=== PATIENT | female | born 1990 | race Hispanic/Latino ===

== ENCOUNTER 2020-01-29 07:51 | Emergency (ER) | payer OTHER ==
[2020-01-29 08:08] VITALS: BP 137/73
[2020-01-29] MEDS ORDERED: KETOROLAC 60 MG/2 ML INJ IM ONE (10:20)
[2020-01-29] MEDS ORDERED: dexAMETHasone 4 MG/ML VIAL IM ONE (10:20)
[2020-01-29] MEDS ORDERED: traMADol 50 MG TAB PO ONE (10:20)
--- NOTE | 2020-01-29 10:53 | Emergency Department Report ---
ED Back Pain/Injury HPI - General Chief Complaint: Back Pain/Injury Stated Complaint: BACK PAIN RADIATING TO LEGS Time Seen by Provider: 01/29/20 10:12 Source: patient Limitations: No Limitations - History of Present Illness Initial Comments: Patient is a 29-year-old female presents emergency room with complaints of left lower back pain that radiates down her left leg that exacerbated yesterday. Patient states that she has had this back pain for approximately 2 months after she was breaking up her dogs from fighting. she denies any new fall or injury. She states that she has been seeing her primary care doctor for this. She states that she has an MRI scheduled for today at 6:30 PM. She states that she has been taking ibuprofen 800 mg and tizanidine. She states that beginning yesterday the pain increased and she had discomfort with movement, standing, sitting. She states that she has tingling down the left leg which she has been experiencing over the last 3 weeks. She denies any weakness, bowel or bladder incontinence, urinary symptoms, vomiting, diarrhea, fever. She has not yet seen an orthopedic doctor. She states that she did have an x-ray performed by her primary care physician which she states she was told had "narrowing but she denies any fracture or dislocation." She denies any allergies to medications. - Related Data Previous Rx's Medication Instructions Recorded Last Taken Type Naproxen [Naprosyn] 500 mg PO BID PRN #30 tablet 04/08/13 Unknown Rx Menthol/Camphor [Freeborn Hulbert 1 applicatio TP BID #18 oint...g. 01/29/20 Unknown Rx Ointment] traMADoL [Ultram 50 MG tab] 50 mg PO Q6HR PRN #10 tablet 01/29/20 Unknown Rx Allergies Allergy/AdvReac Type Severity Reaction Status Date / Time No Known Allergies Allergy Unverified 04/08/13 02:39 ED Review of Systems ROS: Stated complaint: BACK PAIN RADIATING TO LEGS Other details as noted in HPI Comment: All other systems reviewed and negative ED Past Medical Hx - Past Medical History Previous Medical History?: No - Surgical History Past Surgical History?: No - Social History Smoking Status: Never Smoker Substance Use Type: Alcohol - Medications Home Medications: Home Medications Medication Instructions Recorded Confirmed Last Taken Type Naproxen [Naprosyn] 500 mg PO BID PRN #30 tablet 04/08/13 Unknown Rx Menthol/Camphor [Freeborn Hulbert 1 applicatio TP BID #18 oint...g. 01/29/20 Unknown Rx Ointment] traMADoL [Ultram 50 MG tab] 50 mg PO Q6HR PRN #10 tablet 01/29/20 Unknown Rx ED Physical Exam - General Limitations: No Limitations General appearance: alert, in no apparent distress - Head Head exam: Present: atraumatic, normocephalic - Eye Eye exam: Present: normal appearance - ENT ENT exam: Present: mucous membranes moist - Neck Neck exam: Present: normal inspection, full ROM. Absent: tenderness - Respiratory Respiratory exam: Present: normal lung sounds bilaterally. Absent: respiratory distress, wheezes, rales, rhonchi, stridor, chest wall tenderness, accessory muscle use, decreased breath sounds, prolonged expiratory - Cardiovascular Cardiovascular Exam: Present: regular rate, normal rhythm, normal heart sounds. Absent: systolic murmur, diastolic murmur, rubs, gallop - Back Exam Back exam: Present: normal inspection, full ROM, paraspinal tenderness (left lower lumbar paraspinal muscular ttp, no midline C-spine, T-spine or L-spine ttp, no step offs, no deformities). Absent: vertebral tenderness - Neurological Exam Neurological exam: Present: alert, oriented X3, CN II-XII intact, normal gait. Absent: motor sensory deficit - Psychiatric Psychiatric exam: Present: normal affect, normal mood - Skin Skin exam: Present: warm, dry, intact ED Course Vital Signs 01/29/20 08:08 Temperature 98.4 F Pulse Rate 82 Respiratory 16 Rate Blood Pressure 137/73 [Right] O2 Sat by Pulse 98 Oximetry ED Medical Decision Making - Medical Decision Making Patient is a 29-year-old female presents emergency room with complaints of left lower back pain that radiates down her left leg that exacerbated yesterday. Patient states that she has had this back pain for approximately 2 months after she was breaking up her dogs from fighting. she denies any new fall or injury. She states that she has been seeing her primary care doctor for this. She states that she has an MRI scheduled for today at 6:30 PM. She states that she has been taking ibuprofen 800 mg and tizanidine. She states that beginning yesterday the pain increased and she had discomfort with movement, standing, sitting. She states that she has tingling down the left leg which she has been experiencing over the last 3 weeks. She denies any weakness, bowel or bladder incontinence, urinary symptoms, vomiting, diarrhea, fever. She has not yet seen an orthopedic doctor. She states that she did have an x-ray performed by her primary care physician which she states she was told had "narrowing but she denies any fracture or dislocation." She denies any allergies to medications. vitals are normal. on exam: left lower lumbar paraspinal muscular ttp, no midline C-spine, T-spine or L-spine ttp, no step offs, no deformities, no neuro deficits. Patient likely presenting with sciatica versus lumbar radiculopathy. She has no clinical signs of cauda equina or conus medullaris. This is been ongoing for 2 months but exacerbated today, she has had no acute trauma. Patient already has an MRI scheduled for today. Patient given medications while in the emergency department as she did not drive and symptoms improved. Patient will be referred to an orthopedic doctor. Patient given prescription for tramadol and Freeborn balm ointment. Advised patient please use medication as prescribed as needed. Please do not take medication with tizanidine please separate these medications by 4 hours. May use ice pack, heating pad, rest, Epson salt bath. Follow-up with a primary care doctor. Follow-up with orthopedic doctor. Please keep your appointment to have your MRI done today at 6:30 PM. Return to emergency room for any new or worsening symptoms. - Differential Diagnosis lumbar radiculopathy, sciatica, muscle strain, DDD, bulging disc Critical care attestation.: If time is entered above; I have spent that time in minutes in the direct care of this critically ill patient, excluding procedure time. ED Disposition Clinical Impression: Lower back pain Qualifiers: Chronicity: acute Back pain laterality: left Sciatica presence: with sciatica Sciatica laterality: sciatica of left side Qualified Code(s): M54.42 - Lumbago with sciatica, left side Disposition: DC-01 TO HOME OR SELFCARE Is pt being admited?: No Does the pt Need Aspirin: No Condition: Stable Instructions: Sciatica (ED), Lumbar Radiculopathy (ED) Additional Instructions: Please use medication as prescribed as needed. Please do not take medication with tizanidine please separate these medications by 4 hours. May use ice pack, heating pad, rest, Epson salt bath. Follow-up with a primary care doctor. Follow-up with orthopedic doctor. Please keep your appointment to have your MRI done today at 6:30 PM. Return to emergency room for any new or worsening symptoms. Prescriptions: Menthol/Camphor [Freeborn Hulbert Ointment] 1 applicatio TP BID #18 oint...g. traMADoL [Ultram 50 MG tab] 50 mg PO Q6HR PRN #10 tablet PRN Reason: Pain , Severe (7-10) Referrals: PRIMARY CARE, [Primary Care Provider] - 2-3 Days NATANAEL RAM MD [Staff Physician] - 2-3 Days [facility] [Provider Group] - 2-3 Days Time of Disposition: 10:53 Print Language: NEPALI
== END 2020-01-29 11:10 | disposition home or self-care (01) ==
LOC: ED 07:51
DX: M54.5 Low back pain (principal); Z79.899 Other long term (current) drug therapy
CPT/HCPCS: 96372; 99282; J1100; J1885